=== PATIENT | female | born 1955 ===

== ENCOUNTER 2017-05-26 17:31 | Emergency (ER) | payer OTHER ==
[2017-05-26 17:41] VITALS: O2SAT 98
--- NOTE | 2017-05-26 18:22 | ED PDOC ---
HPI: Abdomen Time Seen by Provider: 05/26/17 17:41 Chief Complaint (Nursing): Abdominal Pain Chief Complaint (Provider): Abdominal pain History Per: Patient History/Exam Limitations: no limitations Onset/Duration Of Symptoms: Days, Intermittent Episodes Outside of [place] travel?: No Current Symptoms Are (Timing): Still Present Location Of Pain/Discomfort: Epigastric Quality Of Discomfort: "Pain", Other (bloating) Associated Symptoms: Loss Of Appetite, Constipation. denies: Fever, Chills, Nausea, Vomiting Additional Complaint(s): The pt is a 61yo female PMHx of high cholesterol controlled by medications, presents to ED for evaluation of epigastric abdominal pain, ongoing for the past 4 days with associated bloating. Pt reports her bloating is worse at night and that she "looks 9 months ." Reports associated constipation for the past 2 days and loss of appetite. She denies any nausea, vomiting, fever, chills , urinary symptoms, black or bloody stools. Of note, she reports she just finished a course of methylprednisone, which she has never taken before, for her allergies. She denies any other medical complaints. PCP: In [place], visits Dr. Kenney in [place] whenever she is in the Past Medical History Reviewed: Historical Data, Nursing Documentation, Vital Signs Vital Signs: Last Vital Signs Temp 99.3 F 05/26/17 20:17 Pulse 69 05/26/17 20:17 Resp 16 05/26/17 20:17 BP 150/86 05/26/17 20:17 Pulse Ox 98 05/26/17 20:17 - Medical History PMH: Hypercholesterolemia - Surgical History Surgical History: Appendectomy Other surgeries: Hysterectomy - Family History Family History: States: Unknown Family Hx - Social History Current smoker - smoking cessation education provided: Yes (4 cigarettes per day ) Alcohol: > 2 Drinks/Day (2-3 glasses of wine per day) - Home Medications Home Medications: Ambulatory Orders Medication Instructions Recorded Atorvastatin [Lipitor] 40 mg PO HS 01/16/17 Loratadine [Claritin] 10 mg PO DAILY 01/16/17 Ciprofloxacin HCl [Cipro] 250 mg PO BID #14 tab 05/26/17 Naproxen [Naprosyn] 1 tab PO BID PRN #30 tab 05/26/17 Tamsulosin [Flomax] 0.4 mg PO DAILY #14 cap 05/26/17 - Allergies Allergies/Adverse Reactions: Allergies Allergy/AdvReac Type Severity Reaction Status Date / Time No Known Allergies Allergy Verified 05/26/17 17:36 Review of Systems ROS Statement: Except As Marked, All Systems Reviewed And Found Negative Constitutional: Negative for: Fever, Chills Gastrointestinal: Positive for: Abdominal Pain, Constipation. Negative for: Nausea, Vomiting, Melena, Hematochezia Physical Exam - Reviewed Nursing Documentation Reviewed: Yes Vital Signs Reviewed: Yes - Physical Exam Appears: Positive for: Well, Non-toxic, No Acute Distress Head Exam: Positive for: ATRAUMATIC, NORMAL INSPECTION, NORMOCEPHALIC Skin: Positive for: Normal Color Eye Exam: Positive for: Normal appearance Neck: Positive for: Normal, Supple Cardiovascular/Chest: Positive for: Regular Rate, Rhythm Respiratory: Positive for: Normal Breath Sounds. Negative for: Respiratory Distress Gastrointestinal/Abdominal: Positive for: Soft, Tenderness (epigastric) Neurologic/Psych: Positive for: Alert, Oriented - Laboratory Results Result Diagrams: 05/26/17 18:19 05/26/17 18:19 - ECG O2 Sat by Pulse Oximetry: 98 (RA) Pulse Ox Interpretation: Normal Medical Decision Making Medical Decision Making: Time: 1800 Impression: Epigastric abdominal pain and intermittent distention Differential: Gastritis, dyspepcia, indigestion, constipation, adverse medicine reaction Plan: -- CMP -- Lipase -- CBC -- XR Abdomen -- PTT -- PT Reassess EXAM: CT Abdomen and Pelvis With Intravenous Contrast CLINICAL HISTORY: 61 years old, female; Pain; Abdominal pain; Generalized; Prior surgery; Surgery date: 6+ months; Surgery type: Hysterectomy. Append. Removed; Additional info: Abd pain and distension, airfluid levels on xray TECHNIQUE: Axial computed tomography images of the abdomen and pelvis with intravenous contrast. This CT exam was performed using one or more of the following dose reduction techniques : automated exposure control, adjustment of the mA and/or kV according to patient size, and/ or use of iterative reconstruction technique. Coronal and sagittal reformatted images were created and reviewed. CONTRAST: 90 mL of [id number] administered intravenously. COMPARISON: No relevant prior studies available. FINDINGS: Lower thorax: There is minimal bibasilar atelectatic change or scarring. ABDOMEN: Liver: There is hepatomegaly. There is a simple cyst in the left lobe of the liver measuring 4.7 cm and there are a few additional low-attenuation lesions in the liver that are too small to characterize. Gallbladder and bile ducts: Unremarkable. No calcified stones. No ductal dilation. Pancreas: Unremarkable. No mass. No ductal dilation. Spleen: Unremarkable. No splenomegaly. Adrenals: Unremarkable. No mass. Kidneys and ureters: There is a 4 mm calculus at the left ureterovesical junction with mild left obstructive uropathy. There are low-attenuation lesions of the kidneys that are too small to characterize. Stomach and bowel: There is a short segment of borderline dilated jejunum in the left upper quadrant with air fluid levels, cannot exclude mild focal ileus, less consistent with small bowel obstruction. Appendix: The appendix is not visualized, consistent with appendectomy. PELVIS: Bladder: Unremarkable. No mass. Reproductive: There are postoperative changes of hysterectomy. ABDOMEN and PELVIS: Intraperitoneal space: Unremarkable. No free air. No significant fluid collection. Bones/joints: There is diffuse osteopenia and there are degenerative changes of the spine. No acute fracture. No dislocation. Soft tissues: Unremarkable. Vasculature: There are atherosclerotic aortic and iliac and femoral artery calcifications. No abdominal aortic aneurysm. Lymph nodes: Unremarkable. No enlarged lymph nodes. IMPRESSION: 1. There is a 4 mm calculus at the left ureterovesical junction with mild left obstructive uropathy. 2. There is a short segment of borderline dilated jejunum in the left upper quadrant with air fluid levels, cannot exclude mild focal ileus, less consistent with small bowel obstruction. Thank you for allowing us to participate in the care of your patient. Dictated and Authenticated by: Davian Miller MD 05/26/2017 10:02 PM Eastern Time ([place] & [place]) Scribe Attestation: Documented by Cira Garcia acting as a scribe for Zarina Barnard MD. Provider Attestation: All medical record entries made by the Scribe were at my direction and personally dictated by me. I have reviewed the chart and agree that the record accurately reflects my personal performance of the history, physical exam, medical decision making, and the department course for this patient. I have also personally directed, reviewed, and agree with the discharge instructions and disposition. Disposition - Clinical Impression Clinical Impression: Renal calculus, Ileus Counseled Patient/Family Regarding: Studies Performed, Diagnosis, Need For Followup, Rx Given - Disposition Referrals: [facility] [Outside] Jim Lambert MD [Medical Doctor] - (SEE YOUR DOCTOR IN 24-48 HOURS FOR REEVALUATION FOLLOW UP WITH A UROLOGIST IN 1-2 WEEKS) Disposition: Routine/Home Disposition Time: 22:30 Condition: IMPROVED Prescriptions: Ciprofloxacin HCl [Cipro] 250 mg PO BID #14 tab Naproxen [Naprosyn] 1 tab PO BID PRN #30 tab PRN Reason: Pain Tamsulosin [Flomax] 0.4 mg PO DAILY #14 cap Instructions: Kidney Stones (ED), Ileus (ED)
[2017-05-26 18:25] LABS: BASO # 0.1 K/uL (0.0-0.2); BASO % 0.7 % (0.0-2.0); EOS # 0.1 K/uL (0.0-0.7); HEMOGLOBIN 13.2 g/dL (12.0-16.0); LYMPH # 2.9 K/uL (1.0-4.3); MEAN CELL VOLUME 93.7 fl (81.0-99.0); MEAN CORPUSCULAR HEMOGLOBIN 31.6 pg (27.0-31.0); MEAN CORPUSCULAR HGB CONC 33.7 g/dL (33.0-37.0); MEAN PLATELET VOLUME 8.5 fl (7.2-11.7); MONO % 9.1 % (0.0-10.0); NEUT # 6.6 K/uL (1.8-7.0); NEUT % 62.2 % (50.0-75.0); RBC 4.18 Mil/uL (3.80-5.20); RED CELL DISTRIBUTION WIDTH 14.6 % (11.5-14.5); WHITE BLOOD COUNT 10.6 K/uL (4.8-10.8)
[2017-05-26 18:37] LABS: ALB/GLOB RATIO 1.5 (1.0-2.1); ALBUMIN 4.3 g/dL (3.5-5.0)
[2017-05-26 18:45] LABS: INR 0.9 (0.9-1.2); PROTHROMBIN TIME 9.8 Seconds (9.8-13.1)
[2017-05-26 19:48] LABS: SQUAMOUS EPITHIAL < 1 /hpf (0-5); URINE BACTERIA RARE (<OCC); URINE BILIRUBIN NEGATIVE (NEGATIVE); URINE BLOOD LARGE (NEGATIVE); URINE CLARITY SLIGHTY-CLOUDY (Clear); URINE COLOR YELLOW (YELLOW); URINE GLUCOSE (UA) NEG (Normal); URINE LEUKOCYTE ESTERASE MOD Leu/uL (Negative); URINE NITRATE NEGATIVE (NEGATIVE); URINE PROTEIN NEGATIVE (NEGATIVE); URINE UROBILINOGEN 0.2-1.0 mg/dL (0.2-1.0)
[2017-05-26 20:18] VITALS: BP 150/86; PULSE 69; RESP 16; TEMP 99.3
[2017-05-26] MEDS ORDERED: Sodium Chloride 0.9% 1,000 ML IV STA (21:08)
[2017-05-26] MEDS ORDERED: Iohexol 300 100 ML IJ ONE (21:12)
[2017-05-26] MEDS ORDERED: Sodium Chloride 0.9% 50 ML IV ONE (21:12)
--- NOTE | 2017-05-27 08:57 | CT ---
PROCEDURE: CT Abdomen and Pelvis with contrast HISTORY: abd pain and distension, airfluid levels on xray COMPARISON: None. TECHNIQUE: CT scan of the abdomen and pelvis was performed after intravenous administration of contrast. Oral contrast was not administered. Coronal and sagittal reformatted images were obtained. Contrast dose: 90 mL Omnipaque 300 Radiation dose: Total exam DLP = 769.91 mGy-cm. This CT exam was performed using one or more of the following dose reduction techniques: Automated exposure control, adjustment of the mA and/or kV according to patient size, and/or use of iterative reconstruction technique. FINDINGS: LOWER THORAX: There is dependent atelectasis in the lung bases and subsegmental atelectasis in the anterior lingula. LIVER: There is mild hepatomegaly and diffuse low-attenuation in the liver. There is a 3.6 cm simple cyst in the left hepatic lobe. There is also a smaller 7 mm simple cyst in the left anterior hepatic lobe. 4 mm low-attenuation lesion in the right hepatic lobe is too small to characterize by CT criteria. GALLBLADDER AND BILE DUCTS: The gallbladder is well distended. There are no calcified gallstones. PANCREAS: The pancreas is normal in size and there is homogeneous enhancement. No gross lesion or ductal dilatation. SPLEEN: The spleen is normal in size and there is homogeneous enhancement without focal mass. ADRENALS: Both adrenal glands are normal in size without discrete nodule. KIDNEYS AND URETERS: There is a 4 mm obstructing stone at the left UV junction with resultant mild hydronephrosis and mild diffuse dilatation of the left ureteral with perinephric inflammatory changes. There is no evidence of nephrolithiasis. The right kidney is normal in size without hydronephrosis or nephrolithiasis. VASCULATURE: Normal in appearance. No aortic aneurysm. BOWEL: There is segmental dilatation of a fluid-filled loop of jejunum in the left upper quadrant. The mid and distal small bowel loops are normal in caliber. The colon is unremarkable. There is no evidence of bowel obstruction. APPENDIX: Surgically absent. PERITONEUM: No free fluid. No free air. LYMPH NODES: No enlarged lymph nodes. BLADDER: There is apparent mild circumferential mural thickening of the urinary bladder wall. REPRODUCTIVE: The uterus is surgically absent. BONES: No acute fracture. Mild degenerative disc disease at L5-S1. OTHER FINDINGS: None. IMPRESSION: 1. Mild left obstructive uropathy due to a 4 mm stone at the left UV junction. 2. Mild segmental dilatation of a jejunal loop in the left upper quadrant likely related to ileus. A preliminary report was provided by [facility].
--- NOTE | 2017-05-27 11:50 | RAD ---
PROCEDURE: Radiographs of the chest and abdomen (obstructive series) HISTORY: abd pain r/o sbo COMPARISON: May 26, 2017. CT abdomen and pelvis. TECHNIQUE: AP radiograph of the chest, with upright and supine radiographs of the abdomen. FINDINGS: CHEST: Lungs: Clear. Cardiovascular: No radiographic findings to suggest acute or significant cardiovascular disease. Pleura: No pleural fluid. No pneumothorax. Other findings: None. ABDOMEN AND PELVIS: Bowel: Unremarkable bowel gas pattern. No evidence of mechanical obstruction. Free air: None. Bones: Unremarkable. Other findings: None. IMPRESSION: Unremarkable radiographs of chest and abdomen. No evidence of mechanical bowel obstruction.
== END 2017-05-26 22:54 | disposition home or self-care (01) ==
LOC: H.ER 17:31
DX: N20.0 Calculus of kidney (principal); K56.7 Ileus, unspecified

== ENCOUNTER 2017-12-25 10:14 | Emergency (ER) | payer OTHER ==
[2017-12-25 10:19] VITALS: BMI 23.2
[2017-12-25 10:21] VITALS: BP 145/96; PULSE 96; RESP 20; TEMP 98.5; O2SAT 98
--- NOTE | 2017-12-25 13:22 | ED PDOC ---
Upper Extremity Pain/Injury Time Seen by Provider: 12/25/17 12:15 Chief Complaint (Nursing): Upper Extremity Problem/Injury Chief Complaint (Provider): Shoulder Pain History Per: Patient History/Exam Limitations: no limitations Onset/Duration Of Symptoms: Days (x 2 weeks) Current Symptoms Are (Timing): Still Present Additional Complaint(s): Patient reports pain in the right shoulder, beginning 2 weeks ago. Denies any trauma or injury. No associated chest pain or difficulty breathing. Patient also reports intermittent numbness to the thenar aspect of left palm for the past couple of days, but (-) pain, (-) injury/trauma. Otherwise: (-) paresthesias, (-) weakness, (-) other injury/trauma. PMD: Dr. Bishop Past Medical History Reviewed: Historical Data, Nursing Documentation, Vital Signs Vital Signs: Last Vital Signs Temp 98.5 F 12/25/17 10:20 Pulse 96 H 12/25/17 10:20 Resp 20 12/25/17 10:20 BP 145/96 H 12/25/17 10:20 Pulse Ox 98 12/25/17 10:20 - Medical History PMH: Hypercholesterolemia Denies: Chronic Kidney Disease - Surgical History Surgical History: Appendectomy - Family History Family History: States: Unknown Family Hx - Social History Current smoker - smoking cessation education provided: No Alcohol: Social Drugs: Denies - Home Medications Home Medications: Ambulatory Orders Medication Instructions Recorded Atorvastatin [Lipitor] 40 mg PO HS 01/16/17 Loratadine [Claritin] 10 mg PO DAILY 01/16/17 Ciprofloxacin HCl [Cipro] 250 mg PO BID #14 tab 05/26/17 Naproxen [Naprosyn] 1 tab PO BID PRN #30 tab 05/26/17 Tamsulosin [Flomax] 0.4 mg PO DAILY #14 cap 05/26/17 - Allergies Allergies/Adverse Reactions: Allergies Allergy/AdvReac Type Severity Reaction Status Date / Time No Known Allergies Allergy Verified 05/26/17 17:36 Review of Systems ROS Statement: Except As Marked, All Systems Reviewed And Found Negative Cardiovascular: Negative for: Chest Pain Respiratory: Negative for: Shortness of Breath Musculoskeletal: Positive for: Shoulder Pain (right), Other (left hand intermittent numbness) Neurological: Negative for: Weakness, Other (paresthesias) Physical Exam - Reviewed Nursing Documentation Reviewed: Yes Vital Signs Reviewed: Yes - Physical Exam Comments: GENERAL APPEARANCE: Patient is awake, alert, oriented x 3, in no acute distress. SKIN: Warm, dry; (-) cyanosis. UPPER EXTREMITY: Shoulder: mild tenderness to the right shoulder; Able to abduct up to 90 degrees. Left hand: (-) swelling, tenderness, or deformity; Full ROM. Elbow and wrist: (-) injury. CARDIOVASCULAR: (+) distal pulse. NEUROLOGIC: (+) distal sensation. - ECG O2 Sat by Pulse Oximetry: 98 (RA) Pulse Ox Interpretation: Normal Medical Decision Making Medical Decision Making: Time: 13:01 Initial Plan: Will obtain x-ray of right shoulder Results: XR R Shoulder: no fracture, no dislocation, as read by SHADI. Patient advised that official radiology read of XR is still pending and will call the patient if there is any discrepancy within 24 hours. Based on history, exam and diagnostic results: patient is stable for discharge home and will follow up with ortho. Referral provided for Dr. Melendrez. Advised to follow up with orthopedist in 1-2 days without fail. Return to the emergency room at any time for any new or worsening symptoms. Patient states she fully agrees with and understands discharge instructions. States that she agrees with the plan and disposition. Verbalized and repeated discharge instructions and plan. I have given the patient opportunity to ask any additional questions. Scribe Attestation: Documented by Farzaneh Caceres, acting as a scribe for Augusta Prescott PA-C Provider Scribe Attestation: All medical record entries made by the Scribe were at my direction and personally dictated by me. I have reviewed the chart and agree that the record accurately reflects my personal performance of the history, physical exam, medical decision making, and the department course for this patient. I have also personally directed, reviewed, and agree with the discharge instructions and disposition. Disposition - Clinical Impression Clinical Impression: Shoulder pain - Patient ED Disposition Is Patient to be Admitted: No Counseled Patient/Family Regarding: Studies Performed, Diagnosis, Need For Followup - Disposition Referrals: Fabrizio Melendrez III, MD [Staff Provider] - Disposition: Routine/Home Disposition Time: 13:45 Condition: STABLE Instructions: Shoulder Pain (ED) Forms: [facility] ([place]) - POA Present On Arrival: None - PA / [employer] / Resident Statement MD/DO has reviewed & agrees with the documentation as recorded.
--- NOTE | 2017-12-25 13:35 | RAD ---
PROCEDURE: Right shoulder dated 12/25/2017. HISTORY: Pain COMPARISON: No prior. FINDINGS: BONES: Normal. No evidence of acute displaced fracture nor dislocation. Osseous structures intact JOINTS: Joint spaces preserved. No significant osteoarthritis SOFT TISSUES: Normal. OTHER FINDINGS: None. IMPRESSION: No evidence of acute displaced fracture nor dislocation.
== END 2017-12-25 13:49 | disposition home or self-care (01) ==
LOC: H.ER 10:14
DX: M25.511 Pain in right shoulder (principal); E78.00 Pure hypercholesterolemia, unspecified